=== PATIENT | female | born 1950 | race Caucasian/White ===

== ENCOUNTER 2020-07-18 08:44 | Outpatient (CLI) | payer MEDICARE, OTHER ==
--- NOTE | 2020-07-19 18:34 | Ultrasound Report ---
PROCEDURE: Head or Neck Soft Tissue INDICATIONS: ABN THYROID FUNCTION STUDIES TECHNIQUE: Real time scanning was performed of the neck region of interest, with image documentation . COMPARISON: None. FINDINGS: Right thyroid lobe measures 5.6 x 2.4 x 1.7 cm. Left thyroid lobe measures 5.3 x 2.1 x 2.1 cm. The is thmus measures 6 mm. Thyroid echotexture is heterogeneous. Multiple bilateral thyroid nodules are not ed. Incidental note of a morphologically normal-appearing right-sided lower neck lymph nodes. Nodule number: One Location: Inferior right Size: 1.4 x 1.5 x 1.4 cm. Composition: Solid Echogenicity: Hypoechoic Shape: wider than tall. Margins: Ill-defined margins Echogenic foci: None. Total points: 4 ACR TI-RADS category: TI-RADS 4, moderately suspicious Nodule number: Two Location: Lateral/mid right Size: Size cm. Composition: Predominantly solid Echogenicity: Hypoechoic Shape: wider than tall. Margins: Ill-defined Echogenic foci: None Total points: 4 ACR TI-RADS category: TI-RADS 4, moderately suspicious Nodule number: Three Location: Left superior/mid Size: 1.1 x 0.9 x 1.1 cm. Composition: Solid Echogenicity: Hypoechoic Shape: wider than tall. Margins: Smooth Echogenic foci: None Total points: 4 ACR TI-RADS category: TI-RADS 4, moderately suspicious Nodule number: Four Location: lateral left mid/inferior lobe Size: 1.3 x 1.2 x 1.5 cm. Composition: Predominantly solid Echogenicity: Isoechoic to hypoechoic Shape: wider than tall. Margins: Ill-defined Echogenic foci: None. Total points: 4 ACR TI-RADS category: TI-RADS 4, moderately suspicious IMPRESSION: Heterogeneous thyroid gland with multiple TI-RADS 4 nodules. Thyroid nodule 4 meets consensus criteri a for fine needle aspiration. Follow up recommendations for the remaining nodules as below ACR TI-RADS definitions and recommendations: TI-RADS 1 (benign): 0 points. FNA not needed. TI-RADS 2 (not suspicious): 2 points. FNA not needed. TI-RADS 3 (mildly suspicious): 3 points. ? FNA if 2.5 cm or larger, follow up if 1.5 cm or larger (at 1, 3, and 5 years). TI-RADS 4 (moderately suspicious): 4-6 points. ? FNA if 1.5 cm or larger, follow up if 1 cm or larger (at 1, 2, 3, and 5 years). TI-RADS 5 (highly suspicious): 7 points or more. ? FNA if 1 cm or larger, follow up if 0.5 cm or larger (every year for 5 years). Reviewed by: Elgin Esqueda MD on 07/19/2020 5:33 PM [place] Approved by: Elgin Esqueda MD on 07/19/2020 5:33 PM [place] Station ID: [id number]
== END 2020-07-18 08:45 | disposition home or self-care (01) ==
LOC: DI 08:44
PROVIDERS: ATTEND Nurse Practitioner Family
DX: E04.2 Nontoxic multinodular goiter (principal)
CPT/HCPCS: 76536

== ENCOUNTER 2020-09-13 12:45 | Outpatient (CLI) | payer MEDICARE, OTHER ==
[2020-09-13] MEDS ORDERED: BUFFERED LIDOCAINE 10 ML SYRINGE ONE (12:46)
--- NOTE | 2020-09-13 18:15 | Ultrasound Report ---
PROCEDURE: Head or Neck Soft Tissue INDICATIONS: THYROID NODULE TECHNIQUE: Real time scanning was performed of the neck region of interest, with image documentation . COMPARISON: Ultrasound of Head and Neck, 07/18/2020. FINDINGS: Both thyroid nodules are present bilaterally. The largest nodule measures 1.45 x 1.4 x 1.2 cm in the mid to inferior left thyroid lobe measures isoechoic to hypoechoic echotexture. After discu ssing with the patient, fine-needle aspiration biopsy is canceled. IMPRESSION: A 1.45 x 1.4 x 1.2 cm moderately suspicious nodule in the mid to inferior pole of the left thyroid lo be. A follow-up ultrasound is suggested in 6 months. Fine-needle aspiration was canceled after discus sing with the patient. Reviewed by: Heladio Marquis MD on 09/13/2020 6:13 PM PST Approved by: Heladio Marquis MD on 09/13/2020 6:13 PM PST Station ID: [id number]
== END 2020-09-13 12:46 | disposition home or self-care (01) ==
LOC: DI 12:45
PROVIDERS: ATTEND Surgery
DX: E04.2 Nontoxic multinodular goiter (principal)

== ENCOUNTER 2021-10-03 14:12 | Outpatient (CLI) | payer MEDICARE, OTHER ==
--- NOTE | 2021-10-03 15:50 | DEXA Report ---
PROCEDURE: Dexa Spine and/or Hip INDICATIONS: THYROID NODULE, POST MENOPAUSAL TECHNIQUE: Dual energy x-ray absorptiometry (DXA) was performed on a [employer] System. Regions measur ed are the AP Spine, femoral neck, and if needed forearm. COMPARISON: None. FINDINGS: Lumbar Spine: Bone Mineral Density 1.624 g/cm/cm,T score 3.7, normal Left Hip: Bone Mineral Density 1.148 g/cm/cm,T score 1.1, normal Left Femoral Neck: Bone Mineral Density 0.932 g/cm/cm, T score -0.8, normal (T score greater or equal to -1.0: NORMAL) (T score from -1.1 to -2.4: OSTEOPENIA) (T score less than or equal to -2.5 to: OSTEOPOROSIS) Impression: Normal bone mineral density. Patients with diagnosis of osteoporosis or osteopenia should have regular bone mineral density assess ment. For those eligible for Medicare, routine testing is allowed once every 2 years. Testing frequ ency can be increased for patients who have rapidly progressing disease or for those who are receivin g medical therapy to restore bone mass. Reviewed by: Rosio Brush MD on 10/03/2021 3:49 PM PST Approved by: Rosio Brush MD on 10/03/2021 3:49 PM PST Station ID: [id number]
--- NOTE | 2021-10-03 18:05 | Ultrasound Report ---
PROCEDURE: Head or Neck Soft Tissue INDICATIONS: THYROID NODULE, POST MENOPAUSAL TECHNIQUE: Real-time scanning was performed of the thyroid gland, with image documentation. COMPARISON: 09/13/2020, 07/18/2020 FINDINGS: Right: Thyroid lobe measures 5.5 x 2.3 x 1.6 cm. Left: Thyroid lobe measures 4.6 x 2.3 x 1.8 cm. Isthmus: 7 mm thick. The thyroid is diffusely heterogeneous, with multiple nodules. The largest nodules are described belo w. Nodule number: 1 Location: Right inferior thyroid Size: 1.6 x 1.3 x 1.7 cm, prior 1.4 x 1.5 x 1.4 cm. Composition: Solid Echogenicity: Hypoechoic Shape: wider than tall. Margins: Poorly defined Echogenic foci: None Total points: 4 ACR TI-RADS category: 4 Nodule number: 2 Location: Right inferior/mid thyroid Size: 1.1 x 0.9 x 0.8 cm, prior 0.9 x 0.6 x 0.9 cm. Composition: Solid Echogenicity: Hypoechoic Shape: wider than tall. Margins: Ill-defined Echogenic foci: None Total points: 4 ACR TI-RADS category: 4 Nodule number: 3 Location: Left mid thyroid Size: 1.3 x 1.4 x 1.1 cm, prior 1.1 x 0.9 x 1.1 cm. Composition: Solid Echogenicity: Hypoechoic Shape: wider than tall. Margins: Irregular Echogenic foci: None. Total points: 4 ACR TI-RADS category: 4 Nodule number: 4 Location: Left mid/posterior Size: 0.9 x 0.7 x 0.7 cm. Composition: Cystic Echogenicity: Anechoic Shape: wider than tall. Margins: Lobulated Echogenic foci: None Total points: 2 ACR TI-RADS category: 2 Nodule number: 5 Location: Isthmus Size: 1 x 0.7 x 0.5 cm. Composition: Solid Echogenicity: Hypoechoic Shape: wider than tall. Margins: Lobulated Echogenic foci: None Total points: 6 ACR TI-RADS category: 4 IMPRESSION: Multiple bilateral thyroid nodules are seen. By published criteria, ultrasound-guided fine-needle aspiration would be recommended for the largest right-sided nodule. ACR TI-RADS definitions and recommendations: TI-RADS 1 (benign): 0 points. FNA not needed. TI-RADS 2 (not suspicious): 2 points. FNA not needed. TI-RADS 3 (mildly suspicious): 3 points. "FNA if 2.5 cm or larger, follow up if 1.5 cm or larger (at 1, 3, and 5 years). TI-RADS 4 (moderately suspicious): 4-6 points. "FNA if 1.5 cm or larger, follow up if 1 cm or larger (at 1, 2, 3, and 5 years). TI-RADS 5 (highly suspicious): 7 points or more. "FNA if 1 cm or larger, follow up if 0.5 cm or larger (every year for 5 years). Reviewed by: Arsh Landeros MD on 10/03/2021 5:04 PM [facility] [[email or web address]] Approved by: Arsh Landeros MD on 10/03/2021 5:04 PM [facility] [[email or web address]] Station ID: [id number]
== END 2021-10-03 14:13 | disposition home or self-care (01) ==
LOC: DI 14:12
PROVIDERS: ATTEND Nurse Practitioner Family
DX: E04.2 Nontoxic multinodular goiter (principal); Z78.0 Asymptomatic menopausal state

== ENCOUNTER 2021-10-22 13:22 | Outpatient (CLI) | payer MEDICARE, OTHER ==
--- NOTE | 2021-10-23 13:37 | Mammography Report ---
BILATERAL DIGITAL SCREENING MAMMOGRAM 3D/2D: 10/22/2021 CLINICAL: Routine screening. Comparison is made to exams dated: 07/23/2011 mammogram and 12/06/2009 mammogram - [facility]. The tissue of both breasts is predominantly fatty. No significant masses, calcifications, or other findings are seen in either breast. There has been no significant interval change. IMPRESSION: NEGATIVE There is no mammographic evidence of malignancy. A 1 year screening mammogram is recommended. This exam was interpreted at Station ID: [id number]. NOTE: For mammograms, a report in lay terms will be sent to the patient. Approximately 15% of breast malignancies will not be visualized mammographically. In the management of a palpable breast mass, a negative mammogram must not discourage biopsy of a clinically suspicious lesion. Electronically Signed By: Gamaliel Brooks M.D., jr/ashia:10/23/2021 08:39:26 ACR BI-RADS Category 1: Negative 3341F PARENCHYMAL PATTERN: (F) - The breast(s) demonstrate(s) diffuse fatty replacement. BI-RADS CATEGORY: (1) - 1 RECOMMENDATION: (ANNUAL) - Recommend routine annual screening mammography. [id number] 1 year screening LATERALITY: (B)
== END 2021-10-22 13:23 | disposition home or self-care (01) ==
LOC: DI.S 13:22
PROVIDERS: ATTEND Nurse Practitioner Family
DX: Z12.31 Encounter for screening mammogram for malignant neoplasm of breast (principal)

== ENCOUNTER 2022-11-14 10:07 | Outpatient (CLI) | payer MEDICARE, OTHER ==
--- NOTE | 2022-11-14 12:00 | XRAY Report ---
PROCEDURE: Chest 2 View X-Ray INDICATIONS: ABNORMAL BREATH SOUNDS TECHNIQUE: 2 views of the chest were acquired. COMPARISON: None. FINDINGS: Surgical changes and devices: None. Lungs and pleura: No pleural effusions or pneumothorax. Lungs are clear. Mediastinum: Mediastinal contours are normal. Heart size is normal. Bones and chest wall: No suspicious bony abnormalities. Soft tissues appear unremarkable. IMPRESSION: No acute cardiopulmonary findings. Reviewed by: Deanna Miller MD on 11/14/2022 11:59 AM [facility] Approved by: Deanna Miller MD on 11/14/2022 11:59 AM [facility] Station ID: [id number]
== END 2022-11-14 10:08 | disposition home or self-care (01) ==
LOC: DI.S 10:07
PROVIDERS: ATTEND Nurse Practitioner Family
DX: R09.89 Other specified symptoms and signs involving the circulatory and respiratory systems (principal)

== ENCOUNTER 2024-03-16 14:49 | Outpatient (CLI) | payer MEDICARE, OTHER ==
--- NOTE | 2024-03-16 19:56 | Ultrasound Report ---
PROCEDURE: Soft Tissue Head or Neck INDICATIONS: THYROID NODULE TECHNIQUE: Real-time scanning was performed of the thyroid gland, with image documentation. COMPARISON: 10/03/2021 FINDINGS: Right: Thyroid lobe measures 5.7 x 2.3 x 1.8 cm. Left: Thyroid lobe measures 4.7 x 2.4 x 1.8 cm Isthmus: 0.6 cm thick. Echotexture: Heterogeneous. Only nodules greater than a centimeter are described in this report Nodule number: 1 Location: Right lower pole Size: 1.6 x 1.7 x 1.5 cm, previously 1.6 x 1.3 x 1.7 cm. Composition: Solid (2 points). Echogenicity: Hypoechoic (2 points). Shape: wider than tall (0 points). Margins: Ill-defined (0 points). Echogenic foci: None (0 points). Total points: 4 ACR TI-RADS category: TI-RADS 4: Moderately suspicious. Nodule number: 3 Location: Left middle pole Size: 1.4 x 1.5 x 1.3 cm, previously 1.3 x 1.4 x 1.1 cm. Composition: Solid (2 points). Echogenicity: Hypoechoic (2 points). Shape: wider than tall (0 points). Margins: Ill-defined (0 points). Echogenic foci: None (0 points). Total points: 4 ACR TI-RADS category: TI-RADS 4: Moderately suspicious. Nodule number: 4 Location: Left middle pole posteriorly Size: 1.0 x 1.1 x 0.7 cm, previously 0.9 x 0.7 x 0.7 cm. Composition: Mixed cystic and solid (1 point). Echogenicity: Isoechoic (1 point). Shape: wider than tall (0 points). Margins: Lobulated / Irregular (2 points). Echogenic foci: None (0 points). Total points: 5 ACR TI-RADS category: TI-RADS 4: Moderately suspicious. IMPRESSION: 1. Multinodular thyroid. 2. Nodule 1, in the right lower pole, has a maximum diameter of 1.7 cm and is in the moderately suspi cious category 4. Also, nodule 3, and the left middle pole, has a maximum diameter 1.5 cm, and is als o in the moderately suspicious category 4. Please refer to the chart below. If these 2 nodules have n ot previously been sampled for diagnosis with a benign diagnosis, recommend ultrasound-guided FNA of both of these lesions for tissue diagnosis. ACR TI-RADS definitions and recommendations: TI-RADS 1 (benign): 0 points. FNA not needed. TI-RADS 2 (not suspicious): 2 points. FNA not needed. TI-RADS 3 (mildly suspicious): 3 points. "FNA if 2.5 cm or larger, follow up if 1.5 cm or larger (at 1, 3, and 5 years). TI-RADS 4 (moderately suspicious): 4-6 points. "FNA if 1.5 cm or larger, follow up if 1 cm or larger (at 1, 2, 3, and 5 years). TI-RADS 5 (highly suspicious): 7 points or more. "FNA if 1 cm or larger, follow up if 0.5 cm or larger (every year for 5 years). Reviewed by: Kyler Rosa MD on 03/16/2024 7:55 PM PDT Approved by: Kyler Rosa MD on 03/16/2024 7:55 PM PDT Station ID: [id number]
== END 2024-03-16 14:50 | disposition home or self-care (01) ==
LOC: DI 14:49
PROVIDERS: ATTEND Registered Nurse
DX: E04.2 Nontoxic multinodular goiter (principal)